=== PATIENT | female | born 1985 ===

== ENCOUNTER → 2020-12-29 | Outpatient (CLI) | payer BC ==
[~2020-12-29] MED LIST: IBU800 M1 PO; MIRALAX119G PO; PERCOCET 325 MG1 TA2 PO; PNV-DHA1 SGL PO; ZOLOFT 50MG50 MG PO
== END ==
LOC: ZCOL.LAB 14:54
DX: Z20.822 Contact with and (suspected) exposure to COVID-19 (principal)

== ENCOUNTER 2021-01-02 05:49 | Inpatient (IN) | payer BC ==
[2021-01-02] VITALS (15 sets, daily range): BP systolic 118–132; BP diastolic 66–93; PULSE 63–86; TEMP 97.3–98.1
[~2021-01-02] VITALS: Ht 163.8 cm; Wt 90.5 kg
[2021-01-02 06:39] LABS: BASO # 0.1 (0.0-0.2); BASO % 0.4 % (0.0-2.0); EOS # 0.1 (0.0-0.7); EOS % 0.6 % (0-4.0); GRAN # 10.4 (1.4-6.5); GRAN % 74.2 % (42.2-75.2); HEMATOCRIT 38.4 % (37.0-47.0); HEMOGLOBIN 13.1 g/dl (12.5-16.0); LYMPH # 2.9 (1.2-3.4); LYMPH % 20.8 % (20.0-51.0); MEAN CELL VOLUME 89 fl (80.0-100.0); MEAN CORPUSCULAR HEMOGLOBIN 30 pg (27.0-31.0); MEAN CORPUSCULAR HGB CONC 34 g/dl (33.0-37.0); MEAN PLATELET VOLUME 12.3 fl (7.4-10.4); MONO # 0.5 (0.1-0.6); MONO % 3.5 % (1.7-9.3); PLATELET COUNT 218 K/mm3 (130-400); RED BLOOD COUNT 4.34 M/mm3 (4.10-5.30); REDCELL DISTRIBUTION WIDTH-CV 13.5 % (11.5-14.5)
[2021-01-02] MEDS ORDERED: PNV-DHA1 SGL PO (06:41)
[2021-01-02] MEDS ORDERED: ZOLOFT 50MG50 MG PO (06:41)
--- NOTE | 2021-01-02 10:40 | NUR ---
Jazmín care provided. Underpads changed out. Krishnan care provided. Abdominal binder secured.
--- NOTE | 2021-01-02 14:30 | NUR ---
Assisted out of bed for first time post op. Steady gait noted. Krishnan catheter removed by this residential mortgage underwriter. Mikayla care provided. Mesh underwear, mikayla pad in place. New gown provided. Encouraged to ambulate in hallways.
--- NOTE | 2021-01-02 14:40 | NUR ---
Note sanguineous drainage noted on abdominal dressing. Traced outline of markings @ this time with date and time.
[2021-01-03 00:30] VITALS: BP 119/80; PULSE 71; TEMP 98
[2021-01-03 03:30] VITALS: BP 120/70; PULSE 61; TEMP 98.4
[2021-01-03 07:18] VITALS: BP 124/76; PULSE 66; TEMP 98.1
--- NOTE | 2021-01-03 09:15 | NUR ---
Initial visit; Patient thanked Extension Agent for offering congratulations and God's blessings for the of their daughter. Extension Agent thanked family for choosing [facility].
--- NOTE | 2021-01-03 11:40 | NUR ---
Viv Rincon RN, gis consultant in to speak with patient @ this time. Note patient prepped for shower.
[2021-01-03] MEDS ORDERED: IBU800 M1 PO (12:38)
[2021-01-03] MEDS ORDERED: PERCOCET 325 MG1 TA2 PO (12:38)
[2021-01-03] MEDS ORDERED: MIRALAX119G PO (12:39)
== END 2021-01-03 13:45 | disposition home or self-care (01) | DRG 787 ==
LOC: OB 05:49
PROVIDERS: ADMIT Student in an Organized Health Care Education/Training Program
PROC: 10D00Z1 Extraction of Products of Conception, Low, Open Approach (ICD-10-PCS; principal; 2021-01-02)
DX: O34.211 Maternal care for low transverse scar from previous cesarean delivery (principal); O99.324 Drug use complicating childbirth; Z3A.39 39 weeks gestation of pregnancy; Z37.0 Single live birth; O99.344 Other mental disorders complicating childbirth; F41.9 Anxiety disorder, unspecified; F12.980 Cannabis use, unspecified with anxiety disorder; O99.214 Obesity complicating childbirth; E66.9 Obesity, unspecified; F31.9 Bipolar disorder, unspecified
CPT/HCPCS: J0690; J1100; J1885; J2405; J2590; J2765; J7120